=== PATIENT | female | born 1960 ===

== ENCOUNTER 2017-04-18 07:25 | Day surgery (SDC) | payer BC ==
--- NOTE | 2017-04-14 03:50 | HP ---
CC: Dr. Cornelius Van; Dr. Tanya Alford; Dr. Bora Ashford * PREOPERATIVE HISTORY AND PHYSICAL: DATE OF PREOPERATIVE HISTORY AND PHYSICAL EXAMINATION: 04/11/17 DATE OF ADMISSION: 04/18/17 DATE OF SURGERY: This patient is scheduled for same-day surgery admission by Dr. Huang on 04/18/17. ATTENDING SURGEON: Dr. Claudia Huang * (dictated by Zi Burr NP). CHIEF COMPLAINT: Left breast cancer. HISTORY OF PRESENT ILLNESS: The patient is a 56-year-old female recently evaluated by Dr. Huang for left breast cancer. The patient states that she felt a left breast lump in February 2017 and went to a facility in [facility] where she had a mammogram that confirmed an abnormality and a biopsy that showed ADH. 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 She was told that she needs additional surgery, but she had come to the [place] by then. She presented to Dr. Huang for definitive management. Dr. Huang reviewed documents from [place] as well as a disc of images and slides of pathology. The patient denies any pain at the surgical site. She denies any family history of breast or ovarian cancer. Menarche was at age 17 and she has not had menstrual period since July 2016. First delivery was at age 33. She is not taking control pills or hormone replacement. She has never had radiation to the chest. She did not breastfeed. Dr. Huang examined the patient and reviewed the findings with her and has advised wide reexcision of the left breast ductal carcinoma in situ. Dr. Huang reviewed the various surgical options and described the nature of the surgical procedure, the relevant risks and benefits. Today, I described typical hospitalization as the same-day surgery procedure at [facility] as well as the expected postoperative recovery and care. The patient has had the chance to ask questions and stated that she understands the information and is satisfied with the answers given to her questions. She will sign surgical consent on the day of surgery. She will have a bilateral breast MRI preoperatively. PAST MEDICAL HISTORY: Generally healthy. No acute or chronic conditions. PAST SURGICAL HISTORY: Excision of left breast ductal carcinoma in situ in [place] in February 2017. MEDICATIONS: Multivitamin daily. ALLERGIES: No known drug allergies. FAMILY HISTORY: Mother with a history of diabetes and hypertension. Father with a history of kidney disease. No known breast or ovarian cancer in the family. No known anesthesia complications, bleeding tendencies, or clotting disorders in the family. SOCIAL HISTORY: She is . She is never been a smoker. She denies the use of alcohol or other substances. REVIEW OF SYSTEMS: Constitutional: No fevers, chills, excessive fatigue or weight loss. Endocrine: No diabetes or thyroid disease. Hematologic: No easy bruising or bleeding. No previous blood transfusions. Breast: Fresh scar superior aspect left breast. No skin dimpling or nipple retraction. No masses noted. Respiratory: No cough. No dyspnea on exertion. Cardiovascular: No anginal chest pain or palpitations. Gastrointestinal: No nausea, vomiting , diarrhea, or constipation. Genitourinary: Completing a course of antibiotics prescribed by Dr. Van's office for recent urinary tract infection and is scheduled to have repeat urinalysis preoperatively; her symptoms were consistent with urgency. Musculoskeletal: No joint or back pain. Skin: No chronic rashes or ulcerations. Neurologic: No headache or blurred vision. No history of seizures. General: No previous anesthesia complications. No history of deep vein thrombosis or pulmonary embolism. She reports that she was treated for tuberculosis 30 years ago. PHYSICAL EXAMINATION GENERAL SURVEY: The patient is a 56-year-old female, well developed, and well nourished, in no acute distress. VITAL SIGNS: Height 62 inches, weight 96 pounds. Body mass index 17.6. Blood pressure 100/64, pulse 76 and regular, respiratory rate 16, temperature 97.7. SKIN: Warm, dry, intact. HEENT: Benign. NECK: Supple. No cervical lymphadenopathy. No supraclavicular lymphadenopathy. BREAST: Was performed while the patient was in a supine position; there is a fresh scar in the superior left breast at the nipple areolar complex well healed. No left breast masses. No skin dimpling or nipple retraction or nipple discharge. Right breast, no palpable masses. No palpable axillary lymphadenopathy bilaterally. LUNGS: Breath sounds bilaterally clear and equal. HEART: Regular rate and rhythm. No murmurs or rubs appreciated. ABDOMEN: Active bowel sounds. Flat, soft, and nontender. No obvious masses, organomegaly, or evidence of umbilical hernia. PELVIC: Deferred. RECTAL: Deferred. EXTREMITIES: Warm without edema or skin ulceration. NEUROLOGIC: Alert and oriented x3. Steady gait. IMPRESSION: Left breast ductal carcinoma in situ. PLAN: Same-day surgery admission to Dr. Huang's service on 04/18/17 for wide reexcision of left breast ductal carcinoma in situ. ZI BURR, DIVERSIONAL THERAPIST [id number]/[facility] #: [id number] [facility] HOSPITALSuzanne
[~2017-04-18 07:25] MED LIST: Buffered Lidocaine 0.9% SYRIN* 5 ML/SYR SYRINGE INTRADERM ONE
[2017-04-18] MEDS ORDERED: ceFAZolin 2 GM PREMIX (*) 50 ML IVPB ONE (08:11)
[2017-04-18] MEDS ORDERED: Bupivacaine 0.5% SDV PF* 30 ML VIAL ONE (08:16)
[2017-04-18] MEDS ORDERED: Lidocaine 1% INJ* 10 MG/ML 30 ML SDV ONE (08:16)
[2017-04-18] MEDS ORDERED: Midazolam* 1 MG/ML 5 ML VIAL (5 MG) ONE (08:42)
[2017-04-18] MEDS ORDERED: fentaNYL* 50 MCG/ML 2 ML VIAL (100 MCG VIAL) ONE (09:03)
[2017-04-18] MEDS ORDERED: Ondansetron INJ* 2 MG/ML VIAL IV PRN (09:37)
[2017-04-18] MEDS ORDERED: HYDROcodone/ACETAMIN 5-325 MG* 1 TAB PO PRN ×2 (09:37→10:14)
[2017-04-18] MEDS ORDERED: oxyCODONE TAB* 5 MG TAB PO PRN (09:37)
[2017-04-18] MEDS ORDERED: fentaNYL* 50 MCG/ML 2 ML VIAL (100 MCG VIAL) IV PRN (09:37)
[2017-04-18 10:51] VITALS: BP 130/79
--- NOTE | 2017-04-19 04:38 | OP ---
CC: [facility] OPERATIVE REPORT: DATE OF OPERATION: 04/18/17 DATE OF : 64 SURGEON: Claudia Huang MD SENIOR PRODUCT DEVELOPMENT ENGINEER: SARIKA Patiño student. PRE-OP DIAGNOSIS: Left breast ductal carcinoma in situ. POST-OP DIAGNOSIS: Left breast ductal carcinoma in situ. OPERATIVE PROCEDURE: Wide excision of left breast ductal carcinoma in situ. INDICATIONS: Ms. Duarte is a 56-year-old woman, who was diagnosed with ductal carcinoma in situ in [place] with small excision and positive margins. She presented here with pathology report in hand and requesting surgery. She had the images and biopsy results reviewed and was felt this was appropriate. DESCRIPTION OF PROCEDURE: She was brought, therefore, to the operating room. She was placed on the OR table in supine position and given IV sedation. The left breast was prepped and draped in usual sterile fashion. After infiltrated with local anesthetic, a curvilinear elliptical incision encompassing the previous scar was made. Subcutaneous tissue was then divided with electrocautery to remove mass of tissue from around the scar and was marked in the usual fashion and handed off as a specimen. Hemostasis was assured with electrocautery and once this was adequate, the wound was irrigated with saline. Clips were placed in the wound to peggy its confines and then additional local was instilled into the wound. Closure was accomplished with 3-0 Polysorb in the subcutaneous layer and the skin was closed with 4-0 Surgipro in a subcuticular fashion. Steri-Strips and a dry sterile dressing were applied. All sponge and instrument counts were correct. The patient tolerated the procedure well and was transferred to Recovery in a stable condition. [id number]/[facility] #: [id number] [facility]
== END 2017-04-18 10:57 | disposition home or self-care (01) ==
LOC: OR 07:25
PROVIDERS: ATTEND Surgery
DX: D05.12 Intraductal carcinoma in situ of left breast (principal)
CPT/HCPCS: 81025; 88307; J0690; J2001; J2250; J3010